=== PATIENT | female | born 1990 | race Caucasian/White ===

== ENCOUNTER 2017-01-14 19:31 | Outpatient (CLI) | payer OTHER | END 2017-01-15 00:32 | disposition home or self-care (01) | LOC: GENOP 19:31 | DX: O99.89 Other specified diseases and conditions complicating pregnancy, childbirth and the puerperium (principal); R10.9 Unspecified abdominal pain; Z3A.38 38 weeks gestation of pregnancy | CPT/HCPCS: G0463 ==

== ENCOUNTER 2017-01-18 14:19 | Inpatient (IN) | payer OTHER ==
[~2017-01-18] VITALS: Ht 152.4 cm; Wt 60.8 kg
[2017-01-18 14:40] LABS: RED BLOOD COUNT 5.48 M/UL (4.00-5.10); WHITE BLOOD COUNT 8.9 K/UL (4.5-11.0)
[2017-01-19 03:55] LABS: HEMOGLOBIN 13.9 gm/dl (12.3-15.3)
[2017-01-20] MEDS ORDERED: COLACE 100MG C100 MG PO (14:21)
== END 2017-01-20 14:29 | disposition home or self-care (01) | DRG 775 ==
LOC: GENOP 14:19 → OB 14:36
PROVIDERS: ADMIT Obstetrics & Gynecology
PROC: 10E0XZZ Delivery of Products of Conception, External Approach (ICD-10-PCS; principal; 2017-01-18)
PROC: 3E0234Z Introduction of Serum, Toxoid and Vaccine into Muscle, Percutaneous Approach (ICD-10-PCS; 2017-01-19)
DX: O99.324 Drug use complicating childbirth (principal); F11.20 Opioid dependence, uncomplicated; Z3A.38 38 weeks gestation of pregnancy; Z37.0 Single live birth; O69.81X0 Labor and delivery complicated by cord around neck, without compression, not applicable or unspecified; Z79.899 Other long term (current) drug therapy; Z23 Encounter for immunization
CPT/HCPCS: 36415; 80074; 80307; 81001; 82800; 85014; 85018; 85025; 86762; 86780; 86900; 86901; 87390; 90715; J2590; J7120